=== PATIENT | male | born 1985 | race Caucasian/White ===

== ENCOUNTER 2018-12-29 17:22 | Emergency (ER) | payer BC ==
[2018-12-29 17:49] VITALS: BP 125/82
--- NOTE | 2018-12-29 18:37 | UC ---
Lower Extremity/Ankle HPI - HPI Summary HPI Summary: 33 yo male with righ ankle pain x 4-5 days no known trauma on his feet for 4-8 hours a day pain worse with wt bearing pain medial ankle usually dull ache but at times severe shooting pains - History of Current Complaint Chief Complaint: UCLowerExtremity Stated Complaint: RT ANKLE INJURY Time Seen by Provider: 12/29/18 18:04 Onset/Duration: Gradual Onset, Lasting Days Severity Initially: Mild Severity Currently: Mild Pain Intensity: 3 - at times 7-8/10 Pain Scale Used: 0-10 Numeric Aggravating Factor(s): Standing, Ambulation Alleviating Factor(s): Rest Able to Bear Weight: Yes Feet (Multiple View): 1 - pain here, no obvious swelling - Allergies/Home Medications Allergies/Adverse Reactions: Allergies Allergy/AdvReac Type Severity Reaction Status Date / Time Penicillins Allergy Anaphylatic Verified 12/29/18 17:50 Shock Home Medications: Home Medications NK [No Home Medications Reported] 12/29/18 [History Confirmed 12/29/18] PMH/Surg Hx/FS Hx/Imm Hx Previously Healthy: Yes Psychological History: Anxiety - Surgical History Surgical History: Yes Surgery Procedure, Year, and Place: tonsilectomy - Family History Known Family History: Positive: Hypertension Negative: Cardiac Disease, Diabetes - Social History Alcohol Use: Rare Substance Use Type: None Smoking Status (MU): Former Smoker When Did the Patient Quit Smoking/Using Tobacco: 2017 Review of Systems All Other Systems Reviewed And Are Negative: Yes Constitutional: Positive: Negative Skin: Positive: Negative Eyes: Positive: Negative ENT: Positive: Negative Respiratory: Positive: Negative Cardiovascular: Positive: Negative Gastrointestinal: Positive: Negative Genitourinary: Positive: Negative Motor: Positive: Negative Neurovascular: Positive: Negative Musculoskeletal: Positive: Arthralgia - right ankle Neurological: Positive: Negative Psychological: Positive: Negative Physical Exam Triage Information Reviewed: Yes Appearance: Well-Appearing, No Pain Distress, Well-Nourished Vital Signs: Initial Vital Signs Temp 97.9 F 12/29/18 17:41 Pulse 108 12/29/18 17:41 Resp 18 12/29/18 17:41 BP 125/82 12/29/18 17:41 Pulse Ox 99 12/29/18 17:41 Vital Signs Reviewed: Yes Eyes: Positive: Conjunctiva Clear ENT: Positive: Hearing grossly normal, Uvula midline. Negative: Nasal congestion, Nasal drainage, Trismus, Hoarse voice Dental Exam: Normal Neck exam: Normal Neck: Positive: Supple, Nontender, No Lymphadenopathy Respiratory: Positive: Lungs clear, Normal breath sounds, No respiratory distress, No accessory muscle use Cardiovascular: Positive: RRR, No Murmur Musculoskeletal: Positive: ROM Intact, No Edema Neurological: Positive: Alert Psychological Exam: Normal Skin Exam: Normal Diagnostics - Radiology No standard instances Radiology Interpretation Completed By: ED Physician Summary of Radiographic Findings: NAD, no fx Lower Extremity Course/Dx - Differential Dx/Diagnosis Provider Diagnosis: Right ankle pain Discharge ED - Sign-Out/Discharge Documenting (check all that apply): Patient Departure All imaging exams completed and their final reports reviewed: No - Discharge Plan Condition: Stable Disposition: HOME Patient Education Materials: Ankle Sprain (ED), Walking Boot (ED) Forms: *Work Release Referrals: Sander Castro MD [Medical Doctor] - 5 Days (if not better) - Billing Disposition and Condition Condition: STABLE Disposition: Home
--- NOTE | 2018-12-30 12:42 | ED ---
Progress - Progress Note Progress Note: final xray read reviewed and mild soft tissue swelling noted. Course/Dx - Diagnoses Provider Diagnoses: Right ankle pain Discharge ED - Sign-Out/Discharge Documenting (check all that apply): Patient Departure All imaging exams completed and their final reports reviewed: Yes - Discharge Plan Condition: Stable Disposition: HOME Patient Education Materials: Ankle Sprain (ED), Walking Boot (ED) Forms: *Work Release Referrals: Sander Castro MD [Medical Doctor] - 5 Days (if not better) - Billing Disposition and Condition Condition: STABLE Disposition: Home
== END 2018-12-29 18:45 | disposition home or self-care (01) ==
LOC: UCCORT 17:22
DX: M25.571 Pain in right ankle and joints of right foot (principal); Z87.891 Personal history of nicotine dependence
CPT/HCPCS: 99202; G0463

== ENCOUNTER 2019-08-13 09:50 | Emergency (ER) | payer SELFPAY ==
[2019-08-13 10:07] VITALS: BP 148/91
--- NOTE | 2019-08-13 10:29 | UC ---
Back Pain HPI - HPI Summary HPI Summary: Pt c/o intermittent low back pain that began 1 week ago s/p falling from standing height 9 days ago. pt states that the pain "comes and goes" and is in different locations on his back, pt notes that the pain radiates from left low back up lateral side to mid back. Pt denies any spinal pain, loss of bowel or bladder control, numbness or tingling. Pt denies any urinary symptoms of frequency, urgency or dysuria. Pt is denies risk for STD is and is sexually active. - History of Current Complaint Chief Complaint: UCBackPain Stated Complaint: BACK PAIN Time Seen by Provider: 08/13/19 10:10 Hx Obtained From: Patient Onset/Duration: Sudden Onset, Lasting Days, Still Present Timing: Intermittent, Lasting Seconds, Lasting Minutes Severity Initially: Mild Severity Currently: Mild Pain Intensity: 5 Back Pain: Is Discrete @ Character: Dull, Aching, Spasmodic Aggravating Factor(s): Movement Alleviating Factor(s): Rest, Position Associated Signs And Symptoms: Positive: Negative - Risk Factors AAA Risk Factors: Negative TAD Risk Factors: Negative Cauda Equina Risk Factors: Negative Epidural Abscess Risk Factors: Negative - Allergies/Home Medications Allergies/Adverse Reactions: Allergies Allergy/AdvReac Type Severity Reaction Status Date / Time cefaclor [From [facility]] Allergy Unknown Verified 08/13/19 10:00 Reaction Details Penicillins Allergy Anaphylatic Verified 12/29/18 17:50 Shock Home Medications: Home Medications Acetaminophen ADULT LIQ* [Tylenol ADULT LIQ*] 650 mg PO Q4H PRN 08/13/19 [ History Confirmed 08/13/19] Ibuprofen ADULT LIQ* [Motrin LIQ ADULT*] 600 mg PO Q8H PRN #270 ml 08/13/19 [Rx] Lidocaine 4% TOPICAL* 1 applic .SEE ORDER DAILY 08/13/19 [History Confirmed ] Trolamine Salicylate/Aloe Vera [Aspercreme 10% Cream] 10 % EX DAILY PRN [History Confirmed 08/13/19] PMH/Surg Hx/FS Hx/Imm Hx Previously Healthy: Yes - Surgical History Surgical History: Yes Surgery Procedure, Year, and Place: tonsilectomy - Family History Known Family History: Positive: Hypertension Negative: Cardiac Disease, Diabetes - Social History Occupation: Employed Full-time Lives: With Family Alcohol Use: Rare Substance Use Type: None Smoking Status (MU): Former Smoker Have You Smoked in the Last Year: No When Did the Patient Quit Smoking/Using Tobacco: 2017 - Immunization History Vaccination Up to Date: Yes Review of Systems All Other Systems Reviewed And Are Negative: Yes Constitutional: Positive: Negative Skin: Positive: Negative Eyes: Positive: Negative ENT: Positive: Negative Respiratory: Positive: Negative Cardiovascular: Positive: Negative Gastrointestinal: Positive: Negative Genitourinary: Positive: Negative Motor: Positive: Negative Neurovascular: Positive: Negative Musculoskeletal: Positive: Myalgia Neurological/Mental Status: Positive: Negative Psychological: Positive: Negative Is Patient Immunocompromised?: No Physical Exam Triage Information Reviewed: Yes Appearance: Well-Appearing Vital Signs: Initial Vital Signs Temp 97.3 F 08/13/19 10:03 Pulse 88 08/13/19 10:03 Resp 18 08/13/19 10:03 BP 148/91 08/13/19 10:03 Pulse Ox 99 08/13/19 10:03 Vital Signs Reviewed: Yes Eye Exam: Normal ENT: Positive: Hearing grossly normal Neck exam: Normal Respiratory: Positive: Normal breath sounds Cardiovascular Exam: Normal Abdominal Exam: Normal Abdomen Description: Positive: Nontender, Other: - c/o opposite discomfort with CVA examination. Musculoskeletal Exam: Normal Musculoskeletal: Positive: Strength Intact, ROM Intact Neurological Exam: Normal Psychological Exam: Normal Skin Exam: Normal Back Pain Course/Dx - Course Course Of Treatment: I discussed with the pt the need to establish care with a PCP for f/u for hematuria. Pt verbalized understanding and agreed to plan of care. I discussed my plan of care with Dr. Patel and she agreed. - Differential Dx/Diagnosis Differential Diagnosis/HQI/PQRI: Fracture, Strain, Sprain, Other - kidney stone Provider Diagnosis: Mid back pain, Hematuria Discharge ED - Sign-Out/Discharge Documenting (check all that apply): Patient Departure All imaging exams completed and their final reports reviewed: No Studies - Discharge Plan Condition: Stable Disposition: HOME Prescriptions: Ibuprofen ADULT LIQ* [Motrin LIQ ADULT*] 600 mg PO Q8H PRN #270 ml PRN Reason: Pain - Mild Patient Education Materials: Hematuria (ED), Flank Pain (ED) Referrals: [facility] [Outside] - As Soon As Possible No Primary Care Phys,NOPCP [Primary Care Provider] - Additional Instructions: Please establish care with a PCP as soon as possible. At today's visit, it was found that you had blood in your urine, trace and intact. It is important that you have a repeat urine test in the next 4-6 weeks. If your symptoms worsen, please go directly to the closest emergency room immediately. Please drink at least 32 ounces of water daily. - Billing Disposition and Condition Condition: STABLE Disposition: Home
== END 2019-08-13 10:46 | disposition home or self-care (01) ==
LOC: UCCORT 09:50
DX: M54.6 Pain in thoracic spine (principal); R31.9 Hematuria, unspecified; Z88.1 Allergy status to other antibiotic agents; Z88.0 Allergy status to penicillin; Z87.891 Personal history of nicotine dependence
CPT/HCPCS: 81003; 99212; G0463